=== PATIENT | female | born 1990 | race Caucasian/White ===

== ENCOUNTER 2018-06-04 13:13 | Inpatient (IN) | payer SELFPAY ==
[2018-06-04 12:08] VITALS: BMI 30.2
[2018-06-04 13:55] LABS: Hematocrit 31.1 % (37-47); Hemoglobin 9.8 g/dl (12.0-15.0); Mean Corp Hgb Conc 31.5 g/gl (32-36); Mean Corpuscular Hgb 25.6 pg (27.0-32.0); Mean Corpuscular Volume 81.2 fL (81-99); Platelet Count 284 K/mm3 (150-450); RBC Distribution Width SD 41.9 fl (35.1-43.9); Red Blood Count 3.83 M/mm3 (4.2-5.4); White Blood Count 10.3 K/mm3 (4.4-11.0)
[2018-06-04 13:56] LABS: Scan Indicated on CBC? Y/N NO
[2018-06-04] MEDS: Lactated Ringers 1,000 ML 50 ML IV ×2 (14:00→15:00)
--- NOTE | 2018-06-04 14:05 | PCM.HP.OB ---
History Date of Admission: 06/04/18 Final RASHAUN: 06/11/18 Final RASHAUN Source: US <20 weeks Gestational age: 39 Weeks and 0 Days History of this : Patient presents c/o ctxs. Denies VB/LOF. Surgical History: Surgical History (Last Updated 06/04/18 @ 14:06 by Cassandra Jones) H/O vaginal surgery Z98.890 Allergies amoxicillin Allergy (Verified 03/17/17 13:12) Hives Home Medications: Home Medications Vit No.130/Iron/Folic [ Tablet] 1 each PO DAILY 06/04/18 Smoking Status: Never smoker Number of Fetus(es): 1 Heart Tracin with mod variability, accels, variables TOCO Analysis: Q 3 minutes when tracing ctxs History Past Pregnancies: Past Pregnancies Delivery Date Name GA/Weeks Outcome Route Weight Infant Gender Labor Length Anesthesia Delivery Location Provider FOB Labs: GBS negative See [facility] H&P Expected Infant Delivery Method: Spontaneous Vaginal Physical Exam General: Alert, Oriented x3 Abdomen: Soft, Non Tender, Non-Distended, Gravid Neurological: Cranial nerves II-XII grossly intact [employer]: Normal external genitalia Estimated gestational size: Appropriate for gestational size Cervix Dilation (cm): 5.5 - AROM scant amniotic fluid Station: -2 Effacement (%): 70 Assessment/Plan This is a 27 year-old female at 39 weeks gestational age in labor. Admit to L&D Pain - considering nitrous gas vs epidural if needed GBS negative EFW - less than 4500g, adequate pelvis Routine care
--- NOTE | 2018-06-04 14:10 | HP.PCM_ITS ---
History Date of Admission: 06/04/18 Final RASHAUN: 06/11/18 Final RASHAUN Source: US <20 weeks Gestational age: 39 Weeks and 0 Days History of this : Patient presents c/o ctxs. Denies VB/LOF. Surgical History: Surgical History (Last Updated 06/04/18 @ 14:06 by Cassandra Jones) H/O vaginal surgery Z98.890 Allergies amoxicillin Allergy (Verified 03/17/17 13:12) Hives Home Medications: Home Medications Vit No.130/Iron/Folic [ Tablet] 1 each PO DAILY 06/04/18 Smoking Status: Never smoker Number of Fetus(es): 1 Heart Tracin with mod variability, accels, variables TOCO Analysis: Q 3 minutes when tracing ctxs History Past Pregnancies: Past Pregnancies Delivery Date Name GA/Weeks Outcome Route Weight Infant Gender Labor Length Anesthesia Delivery Location Provider FOB Labs: GBS negative See [facility] H[facility]P Expected Infant Delivery Method: Spontaneous Vaginal Physical Exam General: Alert, Oriented x3 Abdomen: Soft, Non Tender, Non-Distended, Gravid Neurological: Cranial nerves II-XII grossly intact SERVICE PORTER: Normal external genitalia Estimated gestational size: Appropriate for gestational size Cervix Dilation (cm): 5.5 - AROM scant amniotic fluid Station: -2 Effacement (%): 70 Assessment/Plan This is a 27 year-old female at 39 weeks gestational age in labor. Admit to L&D Pain - considering nitrous gas vs epidural if needed GBS negative EFW - less than 4500g, adequate pelvis Routine care
[2018-06-04] MEDS: fentaNYL-bupivacaine (epidural) 100 ML BAG EPIDURAL (15:19)
[2018-06-04] MEDS: Mag Hydrox/Al Hydrox/Simeth 30 ML UDC PO (17:15)
[2018-06-04] MEDS: Oxytocin 30 units/NS 500 ml 30 UNITS/500 ML IV.SOLN 334 UNITS IV (18:36)
--- NOTE | 2018-06-04 18:59 | PCM.OB.VAG ---
Vaginal Delivery Maternal Presentation: Active Labor Amniotic Membrane Rupture Type: Artificial Amniotic Fluid Description: Clear Final RASHAUN: 06/11/18 Gestational age: 39 Weeks and 0 Days Date of Procedure: 06/04/18 Pre-Operative Diagnosis: Labor Post-Operative Diagnosis: Labor Surgery/ Procedure Performed: Spontaneous Vaginal Delivery Type of Anesthesia: Epidural Description of Procedure: Patient prepped & draped when c/c/+2. She pushed to deliver head. Then shoulders & body easily delivered and placed on maternal abdomen. 3VC clamped & cut in delayed fashion. Placenta delivered with gentle traction. Good uterine tone obtained. Presentation: NAI Placental Delivery Description: Expressed Placenta Disposition: [facility] Cord Vessel Description: 3 Vessels Cord Entanglement: None Estimated Blood Loss: 200ml A gender: Female (1 minute): 8 (5 minute): 9 Episiotomy Description: None Laceration: 2nd degree - perineal - repaired with 3-0 vicryl Medications given after delivery: IV Pitocin
[2018-06-04] MEDS: Oxytocin 30 units/NS 500 ml 30 UNITS/500 ML IV.SOLN 167 UNITS IV (19:06)
[2018-06-04] MEDS: 0.9% Saline Lock 10 ML Syringe IV (20:24)
[2018-06-04] MEDS: Ibuprofen 600 MG Tablet PO (21:56)
[2018-06-04 23:14] VITALS: BP 126/80; PULSE 77; RESP 18; TEMP 36.8
[2018-06-05 04:10] VITALS: BP 134/79; PULSE 62; RESP 18; TEMP 37.2
[2018-06-05] MEDS: Ibuprofen 600 MG Tablet PO (06:31)
[2018-06-05 09:05] VITALS: BP 119/72; PULSE 69; RESP 16; TEMP 36.8; O2SAT 98
[2018-06-05] MEDS: Acetaminophen 500 MG Tablet 1000 MG PO (11:58)
[2018-06-05 12:15] VITALS: BP 111/72; PULSE 82; RESP 16; TEMP 36.9; O2SAT 97
--- NOTE | 2018-06-05 13:02 | PCM.PN.OB ---
Subjective: Doing well per patient and nursing staff. Ambulating and taking PO without difficulty. Voiding and having BM without concerns. Denies any increased vaginal bleeding or clots. Denies any chest pain, SOB, increased pain or concerns. Planning D/C home today. - Physical Exam General: Alert, Oriented x3, Cooperative HEENT: Atraumatic Neck: Supple, Trachea Midline Lungs: Clear to auscultation, Normal air movement, No rhonchi, No wheeze Cardiovascular: Regular rate, Regular Rhythm, No murmurs Abdomen: Bowel Sounds Present, - - Fundus firm 3 below U Extremities: No edema, - - meena's negative bilaterally Psych/Mental Status: Normal Affect, Appropriate Vital Signs Temp Pulse Resp BP Pulse Ox 98.2 F 69 16 119/72 98 06/05/18 09:05 06/05/18 09:05 06/05/18 09:05 06/05/18 09:05 06/05/18 09:05 Oxygen Delivery Method Room Air Weight: 176 lb 2.389 oz Body Mass Index (BMI) 30.2 Intake and Output for Last 24 Hours 06/03/18 06/04/18 06/05/18 22:59 23:59 23:59 Intake Total Output Total 200 / 200 Balance -200 / -200 Laboratory Tests Past 24 Hrs 06/04/18 06/04/18 13:45 13:45 WBC 10.3 RBC 3.83 L Hgb 9.8 L Hct 31.1 L MCV 81.2 MCH 25.6 L MCHC 31.5 L RDW 14.0 RDW Differential 41.9 Plt Count 284 MPV 10.0 Blood Type O POSITIVE Antibody Screen NEGATIVE Medical Necessity - Tobacco Use Smoking Status: Never smoker Assessment/Plan A:PPD #1 P: 1) Routine care. Planning D/C home today. 2) Follow up in 2 weeks and 6 weeks . 3) Discharge home today. 4) CBC today. Will start Ferrous Sulfate 325mg PO BID.
[2018-06-05 14:11] LABS: Absolute Lymphocyte Count 2.29 X10^3/ul (0.83-4.51); Absolute Neutrophil Count 9.4 X10^3/uL (2.0-7.7); Basophil# 0.02 X10^3/uL; Basophil% 0.2 % (0-1); Eosinophil# 0.19 X10^3/uL; Eosinophils% 1.5 % (0-5); Hematocrit 33.1 % (37-47); Hemoglobin 10.1 g/dl (12.0-15.0); Lymphocyte # 2.29 X10^3/ul (4.0); Lymphocyte % 17.8 % (19-41); Mean Corp Hgb Conc 30.5 g/gl (32-36); Mean Corpuscular Hgb 25.2 pg (27.0-32.0); Mean Corpuscular Volume 82.5 fL (81-99); Mean Platelet Vol. 10.1 fl (6.2-12.0); Monocyte# 0.87 X10^3/uL; Monocyte% 6.8 % (0-10); Neutrophil # 9.41 X10^3/uL (2.7-7.7); Neutrophil % 73.1 % (47-70); Platelet Count 314 K/mm3 (150-450); RBC Distribution Width SD 41.3 fl (35.1-43.9); Red Blood Count 4.01 M/mm3 (4.2-5.4); White Blood Count 12.9 K/mm3 (4.4-11.0)
[2018-06-05 14:19] LABS: POSITIVE COUNT NO; POSITIVE DIFFERENTIAL NO; POSITIVE MORPHOLOGY NO
--- NOTE | 2018-06-05 14:46 | DCINST_ITS ---
Discharge Diet: No Restrictions Discharge Activity: Return to Normal Activity, May not drive while taking narcotic pain medications., May Shower, May Take a Tub Bath May resume sexual activity in: 4-6 weeks Weight Bearing Status: Full weight bearing Call your doctor if your incision/area has: Continuous Slow Oozing, Sudden Increased Bleeding, Increased Pain/ Swelling, Increased Redness, Foul Smelling Discharge Call your doctor if you observe: Fever of 101 or Higher, Inability to urinate, Inability to have a bowel movement, Using more than one pad per hour, Shortness of breath, Chest pain, Increased palpitations (irregular heartbeat), Calf discomfort, Uncontrolled pain Additional Instructions: If you experience any of the following, contact your healthcare provider. * Bleeding that soaks a pad every hour for 2 hours * Fever 100.4 or higher * Unrelieved incision or abdominal pain * Swelling, redness, discharge or bleeding from your incision or episiotomy site * Your incision begins to separate * Problems urinating (including inability to urinate or burning while urinating). * Visual changes * Severe headache * Flu-like symptoms * Pain or redness in one of both of your breasts * Pain, warmth, tenderness or swelling in your legs, especially the calf area * Frequent nausea and vomiting * Symptoms of depression or anxiety If you experience any of the following, call 911 or go to the nearest Emergency Room. * Chest pain * Problems breathing * Seizure activity * Partial or complete paralysis of a body part, slurred speech, weakness or micheal oping of the face, or a sudden inability to walk or hold your balance Allergies/Adverse Reactions: Allergies amoxicillin Allergy (Verified 03/17/17 13:12) Hives Medications to take at Discharge Vit No.130/Iron/Folic [ Tablet] 1 each PO DAILY 06/04/18 Ibuprofen [Motrin] 600 mg PO Q6H PRN PRN #30 tab 06/05/18 The following prescriptions were given: Ibuprofen [Motrin] 600 mg PO Q6H PRN PRN #30 tab PRN Reason: Mild Pain (-06/04) Please Follow Up With: Cassandra Jones When: Call to make an appointment with your doctor in 6 weeks. If you had elevated Blood Pressure or 4th degree laceration you will need to be seen in 2 weeks. Primary Care Physician: Cayla Toscano MD [Primary Care Provider] - Test Results: Test results from this visit will be discussed in further detail at your follow- up appointment, if applicable.
[2018-06-05] MEDS: Ferrous Sulfate 325 MG Tablet PO (15:53)
[2018-06-05 16:00] VITALS: BP 119/72; PULSE 64; RESP 14; TEMP 36.8; O2SAT 96
[2018-06-05 19:34] VITALS: BP 111/60; PULSE 85; RESP 14; TEMP 36.6; O2SAT 98
== END 2018-06-05 19:10 | disposition home or self-care (01) | DRG 807 ==
LOC: WPOUT 13:33 → WP 13:33
PROVIDERS: Advanced Practice Midwife; Admitting Provider Obstetrics & Gynecology; Family Provider Internal Medicine; PCP Internal Medicine; Visit Provider Obstetrics & Gynecology
DX: O70.1 Second degree perineal laceration during delivery (principal); Z37.0 Single live birth; Z3A.39 39 weeks gestation of pregnancy
CPT/HCPCS: 59025; 59050; 85025; 85027; 86850; 86900; 99218; J7120; A4216; G0378

== ENCOUNTER → 2022-06-11 | Outpatient (CLI) | payer OTHER, SELFPAY ==
[2022-06-17 20:24] LABS: HPV APTIMA, High Risk Negative (Negative)
== END | disposition home or self-care (01) ==
LOC: LABSPEC 13:47
PROVIDERS: PCP Internal Medicine; Visit Provider Student in an Organized Health Care Education/Training Program
DX: Z12.4 Encounter for screening for malignant neoplasm of cervix (principal)
CPT/HCPCS: 87624; 88175; G0145

== ENCOUNTER → 2022-12-06 | Outpatient (CLI) | payer OTHER, SELFPAY ==
[2022-12-06 16:08] LABS: Absolute Neutrophil Count 2.3 X10^3/uL (2.0-7.7); Basophil# 0.04 X10^3/uL; Basophil% 0.9 % (0-1); Eosinophil# 0.06 X10^3/uL; Eosinophils% 1.3 % (0-5); Hematocrit 37.7 % (37-47); Hemoglobin 11.7 g/dL (12.0-15.0); Lymphocyte % 38.8 % (19-41); Mean Corpuscular Hgb 26.4 pg (27.0-32.0); Mean Corpuscular Volume 84.9 fL (81-99); Mean Platelet Vol. 10.3 fl (6.2-12.0); Monocyte# 0.38 X10^3/uL; Monocyte% 8.2 % (0-10); NRBC Flagged by Analyzer 0 % (0-5); Neutrophil # 2.34 X10^3/uL (2.7-7.7); Neutrophil % 50.4 % (47-70); Platelet Count 340 K/mm3 (150-450); RBC Distribution Width CV 14.6 % (11.6-14.6); RBC Distribution Width SD 45.6 fl (35.1-43.9); Red Blood Count 4.44 M/mm3 (4.2-5.4); White Blood Count 4.6 K/mm3 (4.4-11.0)
[2022-12-06 17:09] LABS: Vitamin D,25 Hydroxy 18.4 ng/mL
[2022-12-06 17:15] LABS: ALB/GLOB Ratio 1.1 RATIO (0.9-2.4); AST(SGOT) 16 U/L (15-37); Alanine Aminotransfer ALT/SGPT 16 U/L (13-56); Albumin, Serum 3.8 g/dL (3.2-5.0); Alkaline Phosphatase 83 U/L (45-117); Anion Gap 9 (5-15); BUN 11 mg/dL (7-18); BUN/Creat Ratio 14.2 RATIO (10-20); Calcium,Total 8.8 mg/dL (8.5-10.1); Chloride 107 mmol/L (98-107); Cholesterol 181 mg/dL (200); Creatinine, Serum 0.77 mg/dL (0.55-1.02); EST Glomerular Filtration Rate 92 mL/min (>60); Est Glom Filt Rate - Afr Amer 112 mL/min (>60); Free T3 2.7 pg/mL (2.18-3.98); Globulin 3.6 g/dL (2.2-4.2); Glucose 87 mg/dL (74-106); High Density Lipoprotein 65 mg/dL; Magnesium 2.3 mg/dL (1.6-2.6); Potassium 3.7 mmol/L (3.5-5.1); Protein, Total 7.4 g/dL (6.4-8.2); Sodium Level 139 mmol/L (136-145); Thyroid Stim Hormone (TSH) 1.08 uIU/mL (0.358-3.74); Triglycerides 68 mg/dL; Very Low Density Lipoprotein 14 mg/dL (5-40)
== END | disposition home or self-care (01) ==
LOC: LAB 14:57
PROVIDERS: PCP Internal Medicine; Referring Provider Internal Medicine; Visit Provider Internal Medicine
DX: Z00.00 Encounter for general adult medical examination without abnormal findings (principal); Z13.220 Encounter for screening for lipoid disorders; R00.2 Palpitations; E55.9 Vitamin D deficiency, unspecified
CPT/HCPCS: 36415; 80053; 80061; 82306; 83735; 84443; 84481; 85025